=== PATIENT | female | born 1985 | race Two or more races ===

== ENCOUNTER 2016-12-26 13:20 | Emergency (ER) | payer BC ==
[~2016-12-26] VITALS: Ht 170.2 cm; Wt 113.4 kg
[2016-12-26 13:23] VITALS: BP 128/84
[2016-12-26] MEDS ORDERED: ARMOUR THYROID30 MG ORAL (13:27)
[2016-12-26] MEDS ORDERED: DRAMAMINE50 MG ORAL (13:58)
[2016-12-26] MEDS ORDERED: FLONASE SENSIM9.9 ML NS (13:58)
[2016-12-26] MEDS ORDERED: IBUPROFEN600 MG ORAL (13:58)
[2016-12-26] MEDS ORDERED: DEBROX15 M1 RIGHT EAR (13:58)
[2016-12-26] MEDS ORDERED: SUDAFED 12 HOU120 M1 PO (13:58)
[2016-12-26 14:05] VITALS: BP 128/84
--- NOTE | 2016-12-26 19:09 | Emergency Room Report ---
History of Present Illness General Chief Complaint: Headache Source: Patient Present Illness HPI The patient is a 31-year-old female presenting for facial pain, headache, nasal congestion, and dizziness for the past 2 weeks. She does in the to history of allergies. Pain is an 8/10 dull ache and does not radiate. No known provoking or relieving factors. She denies any other symptoms including N, V, F, chills, cough, CP, SOB Allergies: Coded Allergies: No Known Allergies (Unverified , 12/26/16) Patient History Past Medical History: see triage record Pertinent Family History: none Last Menstrual Period: last week Now: No Reviewed Nursing Documentation: PMH: Agreed, PSxH: Agreed Nursing Documentation-PMH Past Medical History: No History, Except For Review of Systems All Other Systems: negative except mentioned in HPI Physical Exam Vital Signs Date Time Temp Pulse Resp B/P (MAP) Pulse Ox O2 Delivery O2 Flow Rate FiO2 12/26/16 13:23 98.1 108 16 128/84 97 Room Air Sp02 EP Interpretation: reviewed, normal General Appearance: no apparent distress, alert, GCS 15, non-toxic Head: normocephalic, atraumatic Eyes: bilateral eye normal inspection, bilateral eye PERRL ENT: hearing grossly normal, normal pharynx, no angioedema, normal voice, uvula midline, nasal congestion, other - TTP over bilat maxillary sinuses Neck: full range of motion, supple/symm/no masses Respiratory: chest non-tender, lungs clear, normal breath sounds, speaking full sentences Musculoskeletal: back normal, gait/station normal, normal range of motion, non- tender Neurologic: alert, oriented x3, responsive, motor strength/tone normal, sensory intact, speech normal Psychiatric: judgement/insight normal, memory normal, mood/affect normal, no suicidal/homicidal ideation Skin: normal color, no rash, warm/dry, well hydrated Lymphatic: no adenopathy Medical Decision Making PA Attestation Dr. Cardona is my supervising physician. Patient management was discussed with my supervising physician Diagnostic Impression: Primary Impression: Sinusitis, acute Qualified Codes: J01.00 - Acute maxillary sinusitis, unspecified Additional Impression: Cerumen impaction ER Course The patient is a 31-year-old female presenting for facial pain, headache, nasal congestion, and dizziness Differential diagnoses considered but not limited to: Acute sinusitis, pharyngitis, rhinitis, bronchitis, migraines, among others PE: NAD Afebrile. HEENT: There is nasal congestion with tenderness to palpation over bilateral maxillary sinuses. Right tympanic membrane not visualized due to to cerumen impaction. Pain is elicited when patient lowers her head No nystagmus. PERRL. EOMI She will be PA'ed home and treated for sinusitis and cerumen impaction. The patient will followup with ENT if symptoms do not improve ER precautions given Last Vital Signs Date Time Temp Pulse Resp B/P (MAP) Pulse Ox O2 Delivery O2 Flow Rate FiO2 12/26/16 14:05 98.1 99 17 128/84 99 Room Air Status: improved Disposition: HOME, SELF-CARE Condition: Improved Scripts Dimenhydrinate* (DRAMAMINE*) 50 Mg Tablet 50 MG ORAL Q6H, #10 TAB 0 Refills Prov: TERZIANBARBARAY P.A. 12/26/16 Ibuprofen* (MOTRIN*) 600 Mg Tablet 600 MG ORAL Q8H Y for For Pain, #30 TAB 0 Refills Prov: TERTAHIRAANMITCH P.A. 12/26/16 Fluticasone Furoate (FLONASE SENSIMIST) 9.9 Ml [place].susp 1 ML NS DAILY, #10 ML Prov: MITCH ALFARO P.A. 12/26/16 Pseudoephedrine Hcl (SUDAFED 12 HOUR) 120 Mg Tablet.er 120 MG PO BID, #30 TAB Prov: TERTAHIRAANBARBARAY P.A. 12/26/16 Carbamide Peroxide (DEBROX) 15 Ml Drops 10 DROP RIGHT EAR TWICE A DAY for 4 Days, ML 0 Refills Prov: BOBANBARBARAY P.A. 12/26/16 Referrals: NOT CHOSEN IPA/MD,REFERRING (PCP) Patient Instructions: Sinus Headache, General Headache Without Cause Additional Instructions: I discussed my findings with the patient. All questions and concerns have been answered. Treatment and medication compliance have been addressed. I advised the patient that they need to follow up with PMD in 3-5 days. Return to ED if symptoms worsen, new symptoms arise, or if needed for any reason. Patient verbalized understanding of discharge instructions. MITCH ALFARO Dec 26, 2016 19:09
== END 2016-12-26 14:05 | disposition home or self-care (01) ==
LOC: EMR 13:57
DX: J01.00 Acute maxillary sinusitis, unspecified (principal); H61.20 Impacted cerumen, unspecified ear; R42 Dizziness and giddiness; R09.81 Nasal congestion; R51 Headache
CPT/HCPCS: 99284